=== PATIENT | male | born 1945 | race Caucasian/White ===

== ENCOUNTER 2023-12-07 10:35 | Inpatient (IN) | payer MEDICARE, OTHER, SELFPAY ==
[2023-12-04 10:02] VITALS: BMI 25.1
[2023-12-04 10:32] LABS: % Basophils 0.2 % (0-2); % Eosinophils 1.2 % (0-6); % Immature Granulocytes 1.1 % (0-0.5); % Lymphocytes 8.5 % (20.5-51.1); % Monocytes 10.6 % (1.7-9.3); % Neutrophils 78.4 % (42.2-75.2); Absolute Eosinophils 0.1 10^3/uL (0-0.7); Absolute Immature Granulocytes 0.1 10^3/uL (0-0.05); Absolute Lymphocytes 0.8 10^3/uL (1.2-3.4); Absolute Neutrophils 7.5 10^3/uL (1.4-6.5); Hematocrit 33.9 % (39.0-52.0); Hemoglobin 11.6 g/dL (13.0-18.0); Mean Corp Hgb Conc. 34.2 g/dL (33.0-37.0); Mean Corpuscular Hgb 29.8 pg (27.0-31.0); Mean Corpuscular Volume 87.1 fL (80.0-94.0); Mean Platelet Volume 9.6 fL (7.4-10.4); Nucleated Red Blood Cells % 0 % (-); Platelet Count 263 10^3/uL (130-400); Red Blood Cell Count 3.89 10^6/uL (4.70-6.10); Red Cell Dist. Width 13.2 % (11.5-14.5); White Blood Cell Count 9.5 10^3/uL (4.8-10.8)
[2023-12-04 10:48] LABS: ALT (SGPT) 19 U/L (0-50); AST (SGOT) 28 U/L (17-59); Albumin 4.2 g/dl (3.5-5.0); Alkaline Phosphatase 117 U/L (38-126); Blood Urea Nitrogen 14 mg/dl (9-20); Carbon Dioxide 22 mmol/L (22-30); Chloride 103 mmol/L (98-107); Estimated Creatinine Clearance 79 ml/min; Glucose 131 mg/dl (70-99); Potassium 4.3 mmol/L (3.5-5.1); Sodium 134 mmol/L (135-145); Total Bilirubin 0.8 mg/dl (0.2-1.3); eGFR > 60.00
[2023-12-07] VITALS (14 sets, daily range): BP systolic 71–179; BP diastolic 42–78; BMI 23.4
[2023-12-07] MEDS: NSS 203 ML IV (11:17)
[2023-12-07 12:22] LABS: ACT-LR - POC 273 Seconds (116-155)
[2023-12-07 13:05] LABS: ACT-LR - POC > 397 Seconds (116-155)
--- NOTE | 2023-12-07 13:17 | ITS.CL.PN ---
[facility] - Procedure Note
Procedure
Procedure Note:
CAROTID ANGIOGRAM AND ANGIOPLASTY REPORT
Date of Procedure: 12/07/2023
Referring: Richard Charles MD
Indication: Asymptomatic greater than 70% left ICA stenosis
Operators: Obdulio Zelaya MD, Richard Charles MD
PROCEDURE SUMMARY:
Successful stenting of 70-80% left ICA stenosis using 9 x 30 mm precise stent with distal embolic filter protection
DESCRIPTION OF PROCEDURE: Access was obtained via the right femoral artery. A 5 Samoan sheath was placed. Heparin 6000 units was administered and the ACT was kept greater than 250 for the duration of the procedure. A 5 Samoan CEHN was advanced
into the left common carotid artery. Diagnostic angiography was performed in multiple views to evaluate the cervical and cerebral carotid circulation on the left side. There was no evidence of left common carotid artery stenosis. The left
external carotid artery was widely patent without ostial disease. The left internal carotid artery had 70-80% proximal stenosis extending about 20-25 mm superior. Cerebral angiography demonstrated the distal ICA to be free of disease. The left
MCA and LEVY were widely patent.
A 0.035 supra core wire was advanced into the left ECA. This allowed us to easily exchange the 5 Samoan sheath for a 6 x 90 shuttle sheath which was advanced to the distal left common carotid artery. A BMW wire was then advanced into the petrous
segment of the left ICA. A 6.0 mm spider filter was delivered to the petrous segment of the left ICA and deployed uneventfully. Predilatation of the stenosis was accomplished with a 3 x 30 mm trek balloon to 10 josh with complete balloon expansion.
We then placed a 9 x 30 mm Cordis precise stent to treat the entirety of the stenosis with the proximal portion of the stent placed to deliberately in the distal left CCA. Following stent deployment, we postdilated with a 5 x 30 mm aviator balloon
to 10 josh again achieving complete balloon expansion. The patient tolerated the pre and post balloon inflations without bradycardia or hypotension. The filter was recovered uneventfully and did not contain visible embolic debris.
ANTI-COAGULATION THERAPY
1: Heparin 6000 units
Closure Device Used: 6 Samoan Angio-Seal RFA
Radiation (mGy): 132
DAP (cm2.Gy): 18.6
Fluoroscopy time: 14.9 minutes
CONCLUSIONS: Successful stenting of 70-80% LICA stenosis with distal embolic filter protection as described above
Copy to: Richard Charles MD, Michael Huggins MD ([place], [place])
Richard Charles MD, FAC, [facility]
[2023-12-07] MEDS: FOLVITE 1 MG PO (16:17)
[2023-12-07] MEDS: NSS 1000 IV (16:55)
--- NOTE | 2023-12-07 17:08 | CM ---
spoke to pt in room, he is prev indep, lives with his in a 1 story home with 1 step to enter he denies any dc planning needs or dme's. plan is for dc to home when medically stable.
[2023-12-07] MEDS: THIAMINE INJECTION 200 MG IV (19:36)
--- NOTE | 2023-12-07 20:42 | SUR.OPER ---
Assumed care. Patient AO x3. NSR. Right femoral dressing CDI, +2 pedal pulse. Call servin in reach
[2023-12-08 04:03] VITALS: BP 115/49
--- NOTE | 2023-12-08 04:28 | PTCARENOTE ---
Right groin intact, mildly tender. Scrotal rash. Desenex powder per protocol, VSS, EKG, and labs collected. Call servin in reach
[2023-12-08 05:24] LABS: Hematocrit 28.6 % (39.0-52.0); Hemoglobin 9.6 g/dL (13.0-18.0); Mean Corp Hgb Conc. 33.6 g/dL (33.0-37.0); Mean Corpuscular Hgb 29.4 pg (27.0-31.0); Mean Corpuscular Volume 87.7 fL (80.0-94.0); Mean Platelet Volume 10.1 fL (7.4-10.4); Platelet Count 228 10^3/uL (130-400); Red Blood Cell Count 3.26 10^6/uL (4.70-6.10); Red Cell Dist. Width 13.3 % (11.5-14.5); White Blood Cell Count 7.5 10^3/uL (4.8-10.8)
[2023-12-08 05:46] LABS: Blood Urea Nitrogen 16 mg/dl (9-20); Calcium 8.5 mg/dl (8.4-10.2); Carbon Dioxide 22 mmol/L (22-30); Chloride 106 mmol/L (98-107); Estimated Creatinine Clearance 80 ml/min; Glucose 106 mg/dl (70-99); HDL Cholesterol 45 mg/dl; LDL Cholesterol, Calculated 43 mg/dl; Sodium 134 mmol/L (135-145); Total Cholesterol 103 mg/dl (50-199); Triglyceride 77 mg/dl (10-149); Very Low Density Lipoprotein 15 mg/dl (0-30); eGFR > 60.00
[2023-12-08 07:21] VITALS: BP 123/57
[2023-12-08] MEDS: PLAVIX 75 MG PO (07:44)
[2023-12-08] MEDS: THIAMINE INJECTION 200 MG IV (07:45)
[2023-12-08] MEDS: CRESTOR 20 MG PO (07:45)
[2023-12-08] MEDS: DESENEX/MITRAZOL/ZEASORB 1 APPLIC TOPICAL (07:45)
[2023-12-08] MEDS: FOLVITE 1 MG PO (07:45)
[2023-12-08] MEDS: LOW STRENGTH ASPIRIN 81 MG PO (07:45)
--- NOTE | 2023-12-08 08:01 | W.PN.CD ---
Addendum entered and electronically signed by Romeo Ryder MD 12/08/23 12:05:
I saw and examined the patient.
The [employer]'s note was reviewed and I agree with the note.
Comment: S/P carotid stent. He feels great and wants to go home.
Original Note:
Today's Communication / Plan
-
d/c home
f/u in OV in 2 weeks
Impression / Plan
-
Pt. denies CP, palps, SOB. Mild R groin discomfort. No lightheadedness.
L carotid stenosis:
-s/p L ICA stenting
-stable post
-BP stable
CAD:
-stable on meds
HTN:
-stable on meds
Physical Exam
Vital Signs/Labs
Vital Signs
Temp Pulse Resp BP Pulse Ox
98.1 F 63 16 115/49 99
12/08/23 07:21 12/08/23 07:21 12/08/23 07:21 12/08/23 04:03 12/08/23 07:21
12/07/23 12/08/23 12/09/23
06:59 06:59 06:59
Actual Weight 67.585 kg
12/08/23 04:19
12/08/23 04:19
Triglycerides 77 mg/dl (10-149) 12/08/23 04:19
LDL Cholesterol, Calc 43 mg/dl 12/08/23 04:19
VLDL Cholesterol, Calc 15 mg/dl (0-30) 12/08/23 04:19
HDL Cholesterol 45 mg/dl 12/08/23 04:19
Physical Exam
Cardiovascular: Rhythm & rate is regular and Pedal edema is absent
Respiratory: Respiratory effort normal and Lungs clear to auscul.
Neuro/Psych: AO x 3
Other: Cath Site (R groin no hematoma, no bruit )
Data Reviewed
-
Date of Service: December 08, 2023
EKG: Other (Tele: SB/SR 50-60's )
Labs: Labs Reviewed by me
--- NOTE | 2023-12-08 08:06 | W.DS.TRANS ---
DC Summary - [employer] [facility]
-
Discharge Instructions:
Discharge Diagnosis/Procedures Angioplasty and stent to Left Carotid artery
Diet Low Cholesterol
Driving Restrictions No driving for 24 hours
Instructions:
Stand-Alone Forms: DC Instructions- Cath/EP Lab
Changes to Home Medications: No
Discharge Medications:
DC Medications w/original date entered in [facility]
vit C 250 mg-vit E 90 mg-zinc 40 mg-copper 1 dz-vghkli-zvjwyb capsule (PreserVision AREDS-2) 1 ea PO BID Supplement 02/08/21
rosuvastatin 20 mg tablet 20 mg PO DAILY High cholesterol 05/18/22
aspirin 81 mg chewable tablet 81 mg PO DAILY Blood clot prevention/tx 05/22/22
clopidogrel 75 mg tablet 75 mg PO DAILY #30 tabs 05/28/22
Cbd 1 dose PO PRN PRN pain 10/23/23
losartan 50 mg tablet 50 mg PO DAILY Blood Pressure 10/23/23
tadalafil 2.5 mg tablet 2.5 mg PO PRN PRN ED 10/23/23
multivitamin 1 tab PO DAILY Supplement 11/28/23
Home Medication Changes
No
Pending Results: No
== END 2023-12-08 10:57 | disposition home or self-care (01) | DRG 36 ==
LOC: IVU 10:35
PROVIDERS: Nurse Practitioner; ADMITTING PHYSICIAN Internal Medicine Cardiovascular Disease; FAMILY PHYSICIAN Emergency Medicine
PROC: 037L3DZ Dilation of Left Internal Carotid Artery with Intraluminal Device, Percutaneous Approach (ICD-10-PCS; 2023-12-07)
DX: I65.22 Occlusion and stenosis of left carotid artery (principal); I25.10 Atherosclerotic heart disease of native coronary artery without angina pectoris; I10 Essential (primary) hypertension; E78.5 Hyperlipidemia, unspecified; H35.30 Unspecified macular degeneration; Z95.1 Presence of aortocoronary bypass graft; Z87.891 Personal history of nicotine dependence
CPT/HCPCS: 36415; 37215; 80048; 80053; 80061; 85025; 85027; 85347; 87070; 93005; C1725; C1760; C1769; C1876; C1884; C1894; Q9967

== ENCOUNTER → 2025-08-10 11:01 | Outpatient (REF) | payer MEDICARE, OTHER, SELFPAY | LOC: RCS 11:01 | PROVIDERS: ATTENDING PHYSICIAN Student in an Organized Health Care Education/Training Program; FAMILY PHYSICIAN Emergency Medicine | DX: R06.02 Shortness of breath (principal) | CPT/HCPCS: 93306 ==